=== PATIENT | female | born 1965 | race Asian ===

== ENCOUNTER 2017-08-04 21:40 | Inpatient (IN) | payer OTHER ==
[~2017-08-04] VITALS: Ht 152.4 cm; Wt 57.2 kg
--- NOTE | ~2017-08-04 | S ---
[facility] [place] [address] [place] [address] SURGICAL PATH RPT PROCEDURE Name: HOLLI BOSWELL Room #: 420-P DIS IN M.R.#: [id number] Admission: 08/04/17 Date of : 61 Discharge: 08/07/17 Report #: [id number] Path Case #: [id number] PATHOLOGY REPORT COLLECTION DATE: 08/06/2017 RECEIVED DATE: 08/06/2017 SUBMITTING PHYS: Dr. Star Edwards, DO OTHER PHYS: Dr. Juan Magallanes SPECIMEN(S) RECEIVED: A.Gallbladder * * * * * * * * * * * * FINAL DIAGNOSIS: Gallbladder, cholecystectomy: - Mild chronic cholecystitis. - Cholelithiasis. (IUV:pit; 08/09/2017) PATHOLOGIST: Alison Olivas M.D. REPORT ELECTRONICALLY SIGNED BY: Alison Olivas M.D. DATE/TIME: 08/09/2017 14:46 * * * * * * * * * * * * GROSS PATHOLOGY: Received in formalin labeled "Holli Boswell gallbladder," is a 0.7 x 4.2 x 1.6 cm, previously opened gallbladder with dark lundy, wrinkled serosal surfaces. Opening the gallbladder reveals dark lundy, velvety mucosa and an average wall thickness of 0.2 cm. Calculi are present, measuring 2.7 cm in maximal dimension, possessing a dark lundy and granular appearance, and feeling firm to the touch. No masses are noted grossly. Director Call sections from the body and fundus are submitted along with the proximal margin in cassette A1. (TSD; 08/06/2017) CLINICAL HISTORY: Cholecystitis INITIAL CPT CODE(S): A; 42531 Professional services performed by [facility] at [facility] [address], [place] [address] Technical services performed by [facility] at [address] [place] [address] [address] [place] [address] SURGICAL PATH RPT PROCEDURE Name: HOLLI BOSWELL Room #: 420-P [facility] IN M.R.#: [id number] Admission: 08/04/17 Date of : 61 Discharge: 08/07/17 Report #: [id number] Path Case #: [id number] [place] [address]. [facility] [address] [place] [address] PHONE: [phone] DIRECTOR: Ramon Davies M.D. * * * END OF REPORT * * *
[2017-08-04 21:47] VITALS: BP 181/83
[2017-08-04 22:44] LABS: ABSOLUTE NEUTROPHILS 6.1 thou/uL (1.4-8.2); BASOPHILS 0.5 % (0.0-2.0); EOSINOPHILS 1.4 % (0.0-3.0); HEMATOCRIT 41.6 % (37.0-47.0); HEMOGLOBIN 13.8 gm/dL (12.0-15.0); LYMPHOCYTES 35.1 % (24.0-44.0); MCH 26.7 pg (26.0-34.0); MCHC 33.1 g/dL (28.0-37.0); MCV 80.8 fL (80.0-100.0); MONOCYTES 6.9 % (1.0-8.0); PLATELET COUNT 423 thou/uL (150-400); POLYS 56.1 % (36.0-66.0); RBC 5.15 mil/uL (4.20-5.00); RDW 15.6 % (10.5-14.5); WBC 10.9 thou/uL (4.0-11.0)
[2017-08-04 22:52] LABS: CALCIUM 9.7 mg/dL (8.5-10.1); CREATININE 0.7 mg/dL (0.6-1.0); POTASSIUM 4.4 mmol/L (3.5-5.1)
[2017-08-04 22:58] LABS: ALBUMIN 3.7 g/dL (3.4-5.0); TOTAL BILIRUBIN 0.2 mg/dL (<0.1-1.0); TOTAL PROTEIN 8.3 g/dL (6.4-8.2)
[2017-08-05] MEDS ORDERED: LISINOPRIL20 MG PO (02:36)
[2017-08-05] MEDS ORDERED: TOPROL XL100 MG PO (02:36)
[2017-08-06 04:00] VITALS: BP 114/71
[2017-08-06 04:05] LABS: ABSOLUTE NEUTROPHILS 4.1 thou/uL (1.4-8.2); BASOPHILS 0.6 % (0.0-2.0); EOSINOPHILS 3.2 % (0.0-3.0); HEMATOCRIT 39.3 % (37.0-47.0); HEMOGLOBIN 12.9 gm/dL (12.0-15.0); LYMPHOCYTES 35.2 % (24.0-44.0); MCH 26.4 pg (26.0-34.0); MCHC 32.9 g/dL (28.0-37.0); MCV 80.5 fL (80.0-100.0); MONOCYTES 7.7 % (1.0-8.0); PLATELET COUNT 349 thou/uL (150-400); POLYS 53.3 % (36.0-66.0); RBC 4.89 mil/uL (4.20-5.00); RDW 15.7 % (10.5-14.5); WBC 7.6 thou/uL (4.0-11.0)
[2017-08-06 04:19] LABS: CREATININE 0.7 mg/dL (0.6-1.0); MAGNESIUM 1.8 mg/dL (1.8-2.4); POTASSIUM 3.7 mmol/L (3.5-5.1)
[2017-08-06 07:15] VITALS: BP 118/66
[2017-08-06 19:25] VITALS: BP 112/79
[2017-08-07 04:20] VITALS: BP 101/58
[2017-08-07 07:20] VITALS: BP 101/56
[2017-08-07] MEDS ORDERED: HYDROCODON-ACE1 EAC7 PO (09:38)
[2017-08-07 09:48] VITALS: BP 101/56
== END 2017-08-07 11:27 | disposition home or self-care (01) | DRG 419 ==
LOC: ER 21:40 → EROBS 23:13 → 4E 08-05 18:53
PROVIDERS: Emergency Medicine; Nurse Practitioner
DX: K80.00 Calculus of gallbladder with acute cholecystitis without obstruction (principal); I10 Essential (primary) hypertension; I95.9 Hypotension, unspecified; K66.0 Peritoneal adhesions (postprocedural) (postinfection); Z88.2 Allergy status to sulfonamides; Z88.0 Allergy status to penicillin; I25.2 Old myocardial infarction
CPT/HCPCS: 10084; 50010; 50101; 50249; 50411; 50555; 50558; 50962; 51489; 51975; 52265; 52266; 53307; 53310; 54022; 54118; 55245; 55317; 56462; 56525; 56526; 56639; 62110; 62900; 70005